=== PATIENT | female | born 1960 | race Hispanic/Latino ===

== ENCOUNTER → 2019-01-11 | Outpatient (CLI) | payer OTHER | END | disposition home or self-care (01) | LOC: SHCH 13:12 | PROVIDERS: ATTEND Internal Medicine Cardiovascular Disease | DX: I87.2 Venous insufficiency (chronic) (peripheral) (principal); I10 Essential (primary) hypertension | CPT/HCPCS: 93306; 93970 ==

== ENCOUNTER 2019-02-04 16:11 | Emergency (ER) | payer OTHER ==
[2019-02-04] MEDS ORDERED: ACETAMINOPHEN 325 MG TAB ONE (16:35)
[2019-02-04] MEDS ORDERED: SODIUM CHLORIDE 0.9% 1000ML 2,000 ML IV ONE (16:36)
[2019-02-04] MEDS ORDERED: SODIUM CHLORIDE 0.9% 100 ML IV ONE (17:07)
[2019-02-04 17:15] LABS: BASOPHILS % (AUTO) 0.5 % (0.0-5.0); EOSINOPHILS % (AUTO) 0.1 % (0.0-8.0); HEMATOCRIT 36.6 % (36-48); LYMPHOCYTES % (AUTO) 7.8 % (21.0-51.0); MEAN CORPUSCULAR HEMOGLOBIN 29.1 pg (27.0-33.0); MEAN CORPUSCULAR HGB CONC 33.2 g/dL (32.0-36.0); MEAN CORPUSCULAR VOLUME 87.6 fL (79-99); MONOCYTES % (AUTO) 9.7 % (3.0-13.0); NEUTROPHILS % (AUTO) 81.9 % (40.0-77.0); PLATELET COUNT (AUTO) 221 K/uL (130-400); RED BLOOD CELL COUNT(AUTO) 4.18 MIL/uL (4.00-5.50); RED CELL DISTRIBUTION WIDTH 15.1 % (11.0-15.5); WHITE BLOOD COUNT (AUTO) 7.6 K/uL (4.8-10.8)
[2019-02-04 17:23] LABS: APPEARANCE,URINE Clear (CLEAR); BILIRUBIN,URINE Small (NEGATIVE); COLOR,URINE Dark Yellow (YELLOW); GLUCOSE, URINE (UA) Negative (NEGATIVE); KETONES,URINE Negative (NEGATIVE); LEUKOCYTE ESTERASE ,URINE Trace (NEGATIVE); NITRATE,URINE Negative (NEGATIVE); OCCULT BLOOD,URINE Negative (NEGATIVE); PH,URINE 8.5 (5.0-8.0); PROTEIN,URINE POS 2+ mg/dL (NEGATIVE)
[2019-02-04 17:30] LABS: BACTERIA,URINE Few /HPF (None Seen); RBC,URINE 0-1 /HPF (0-1)
[2019-02-04 17:31] LABS: SQUAMOUS EPITHELIAL CELL,UR Few /HPF (0-2)
[2019-02-04 17:35] LABS: YEAST,URINE BUDDING Rare /HPF (None Seen)
[2019-02-04 18:01] LABS: INR 0.98 (0.85-1.15); PARTIAL THROMBOPLASTIN TIME 34.4 SEC (26.3-35.5); PROTHROMBIN TIME 10.3 SEC (9.6-11.6)
[2019-02-04] MEDS ORDERED: METHYLPREDNISOLONE SOD SUCC 125MG/2ML VIAL ONE (18:52)
[2019-02-04] MEDS ORDERED: KETOROLAC TROMETHAMINE 15MG/ML ONE (18:52)
[2019-02-04 18:57] LABS: ALBUMIN 2.4 g/dL (3.5-5.0); BILIRUBIN,TOTAL 0.5 mg/dL (0.2-1.0); CREATININE 0.9 mg/dL (0.5-1.5); TOTAL PROTEIN, SERUM 6.4 g/dL (6.0-8.3)
[2019-02-04 19:06] LABS: POTASSIUM 4.1 mmol/L (3.5-5.1)
== END 2019-02-04 19:26 | disposition home or self-care (01) ==
LOC: EDH 16:11
DX: J44.1 Chronic obstructive pulmonary disease with (acute) exacerbation (principal); J06.9 Acute upper respiratory infection, unspecified; R53.83 Other fatigue; R53.81 Other malaise; E11.9 Type 2 diabetes mellitus without complications; Z88.6 Allergy status to analgesic agent; Z88.8 Allergy status to other drugs, medicaments and biological substances; Z98.890 Other specified postprocedural states
CPT/HCPCS: 36415; 71045; 80053; 81001; 83605; 85025; 85610; 85730; 87040 ×2; 87088; 87804 ×2; 87880; 93005; 96374; 96375; 99285; J1885; J2930; J7030

== ENCOUNTER → 2019-07-24 | Outpatient (CLI) | payer OTHER | END | disposition home or self-care (01) | LOC: SHCH 14:27 | PROVIDERS: ATTEND Internal Medicine Cardiovascular Disease | DX: Z09 Encounter for follow-up examination after completed treatment for conditions other than malignant neoplasm (principal); I82.812 Embolism and thrombosis of superficial veins of left lower extremity | CPT/HCPCS: 93971 ==

== ENCOUNTER 2019-08-23 09:22 | Emergency (ER) | payer OTHER ==
[2019-08-23 10:43] LABS: BASOPHILS % (AUTO) 0.8 % (0.0-5.0); EOSINOPHILS % (AUTO) 3.6 % (0.0-8.0); HEMATOCRIT 38.1 % (36-48); LYMPHOCYTES % (AUTO) 18.4 % (21.0-51.0); MEAN CORPUSCULAR HEMOGLOBIN 27.2 pg (27.0-33.0); MEAN CORPUSCULAR VOLUME 84.9 fL (79-99); MONOCYTES % (AUTO) 7.9 % (3.0-13.0); NEUTROPHILS % (AUTO) 68.4 % (40.0-77.0); PLATELET COUNT (AUTO) 285 K/uL (130-400); RED BLOOD CELL COUNT(AUTO) 4.49 MIL/uL (4.00-5.50); RED CELL DISTRIBUTION WIDTH 13.7 % (11.0-15.5); WHITE BLOOD COUNT (AUTO) 7.8 K/uL (4.8-10.8)
[2019-08-23 10:53] LABS: CREATININE 0.8 mg/dL (0.5-1.5); POTASSIUM 4.9 mmol/L (3.5-5.1)
[2019-08-23 12:08] LABS: APPEARANCE,URINE Clear (CLEAR); BILIRUBIN,URINE Negative (NEGATIVE); COLOR,URINE Yellow (YELLOW); GLUCOSE, URINE (UA) Negative (NEGATIVE); KETONES,URINE Negative (NEGATIVE); LEUKOCYTE ESTERASE ,URINE Negative (NEGATIVE); NITRATE,URINE Negative (NEGATIVE); OCCULT BLOOD,URINE Negative (NEGATIVE); PH,URINE 7.5 (5.0-8.0); PROTEIN,URINE Negative (NEGATIVE); UROBILINOGEN,URINE 0.2 mg/dL (0.2-1.0)
== END 2019-08-23 11:55 | disposition home or self-care (01) ==
LOC: EDH 09:22
DX: M79.605 Pain in left leg (principal); M79.89 Other specified soft tissue disorders; J44.9 Chronic obstructive pulmonary disease, unspecified; Z87.891 Personal history of nicotine dependence; Z88.8 Allergy status to other drugs, medicaments and biological substances
CPT/HCPCS: 36415; 80048; 81003; 85025; 93971

== ENCOUNTER 2022-03-30 18:07 | Observation (INO) | payer OTHER ==
[~2022-03-30] VITALS: Ht 162.6 cm; Wt 71.3 kg
[2022-03-30] MEDS ORDERED: 0.9%NACL 1000ML 1,000 ML IV ONE (18:30)
[2022-03-30] MEDS ORDERED: NALOXONE HCL 0.4 MG/1 ML ML IVP ONE (18:30)
[2022-03-30 18:41] LABS: BASOPHILS % (AUTO) 0.2 % (0.0-5.0); EOSINOPHILS % (AUTO) 5.7 % (0.0-8.0); HEMATOCRIT 41.3 % (36-48); LYMPHOCYTES % (AUTO) 6.1 % (21.0-51.0); MEAN CORPUSCULAR HEMOGLOBIN 27.4 pg (27.0-33.0); MEAN CORPUSCULAR VOLUME 85.9 fL (79-99); MONOCYTES % (AUTO) 8.5 % (3.0-13.0); NEUTROPHILS % (AUTO) 78.6 % (40.0-77.0); PLATELET COUNT (AUTO) 306 K/uL (130-400); RED BLOOD CELL COUNT(AUTO) 4.81 MIL/uL (4.00-5.50); RED CELL DISTRIBUTION WIDTH 14.2 % (11.0-15.5); WHITE BLOOD COUNT (AUTO) 20.7 K/uL (4.8-10.8)
[2022-03-30 18:51] LABS: CARBON DIOXIDE 26 mmol/L (21-32); CHLORIDE 93 mmol/L (101-111); CREATININE 1.6 mg/dL (0.5-1.5); GLOMERULAR FILTR. RATE CALC 35 mL/min (>60); GLUCOSE,RANDOM 249 mg/dL (70-105); POTASSIUM 4.4 mmol/L (3.5-5.1); SODIUM SERUM 130 mmol/L (136-145); UREA NITROGEN, BLOOD 18 mg/dL (7-18)
[2022-03-30 18:55] LABS: ALANINE AMINOTRANSFERASE 282 U/L (12-78); ALBUMIN 3.6 g/dL (3.5-5.0); ALCOHOL, BLOOD < 3 mg/dL (0-10); AMMONIA 19 umol/L (11-32); ASPARTATE AMINOTRANSFERASE 491 U/L (10-37); CREATINE KINASE, TOTAL 145 U/L (21-232); TOTAL PROTEIN, SERUM 7.7 g/dL (6.0-8.3)
[2022-03-30 19:03] LABS: ACETAMINOPHEN < 1 mcg/mL (10-30); SALICYLATE < 2.8 mg/dL (2.8-20.0)
[2022-03-30] MEDS ORDERED: DDAV2 PO (21:27)
[2022-03-30] MEDS ORDERED: FOLI0.8T3 PO (21:27)
[2022-03-30] MEDS ORDERED: DAPA5TAB PO (21:27)
[2022-03-30] MEDS ORDERED: PRAV10TA39 PO (21:27)
[2022-03-30] MEDS ORDERED: OXYB5TAB15 PO (21:27)
[2022-03-30] MEDS ORDERED: TRAM50TA4 PO (21:27)
[2022-03-30] MEDS ORDERED: MAGN500C4 PO (21:27)
[2022-03-30] MEDS ORDERED: FAMO40TA7 PO (21:27)
[2022-03-30] MEDS ORDERED: GABA300C PO (21:27)
[2022-03-30] MEDS ORDERED: AMLO-257 PO (21:27)
[2022-03-30] MEDS ORDERED: ACETAMINOPHEN 650 MG SUPPOSITORY RC PRN (21:30)
[2022-03-30] MEDS ORDERED: ACETAMINOPHEN 325 MG TAB PO PRN (21:30)
[2022-03-30] MEDS: 0.9%NACL 1000ML 1,000 ML IV SCH (22:23)
[2022-03-31 00:51] LABS: APPEARANCE,URINE CLEAR (CLEAR); BILIRUBIN,URINE NEGATIVE (NEGATIVE); COLOR,URINE YELLOW (YELLOW); GLUCOSE, URINE (UA) >=1000 mg/dL (NEGATIVE); KETONES,URINE NEGATIVE (NEGATIVE); LEUKOCYTE ESTERASE ,URINE NEGATIVE (NEGATIVE); NITRATE,URINE NEGATIVE (NEGATIVE); OCCULT BLOOD,URINE NEGATIVE (NEGATIVE); PH,URINE 6.5 (5.0-8.0); PROTEIN,URINE NEGATIVE (NEGATIVE)
[2022-03-31 00:58] LABS: AMPHET/METH SCREEN,URINE NEGATIVE (NEGATIVE); BARBITURATE SCREEN, URINE NEGATIVE (NEGATIVE); BENZODIAZEPINES SCREEN,URINE NEGATIVE (NEGATIVE); CANNABINOID SCREEN,URINE NEGATIVE (NEGATIVE); COCAINE SCREEN,URINE NEGATIVE (NEGATIVE); OPIATE SCREEN,URINE POSITIVE (NEGATIVE); PHENCYCLIDINE SCREEN,URINE NEGATIVE (NEGATIVE)
[2022-03-31 01:15] LABS: BACTERIA,URINE Many /HPF (None Seen); RBC,URINE 0-1 /HPF (0-1); SQUAMOUS EPITHELIAL CELL,UR 0-2 /HPF (0-2); WBC,URINE 0-1 /HPF (0-1)
[2022-03-31] MEDS: IPRATROPIUM 0.5 MG/2.5 ML INH IH SCH ×5 (01:21→23:25)
[2022-03-31] MEDS ORDERED: NALOXONE HCL 0.4 MG/1 ML ML IVP SCH (04:30)
[2022-03-31] MEDS: AZITHROMYCIN 500MG+NS 250ML IVPB SCH (05:45)
[2022-03-31] MEDS: CEFTRIAXONE 2GM VIAL IVP SCH (05:45)
[2022-03-31 05:51] LABS: HEMATOCRIT 36.7 % (36-48); MEAN CORPUSCULAR HEMOGLOBIN 27.4 pg (27.0-33.0); MEAN CORPUSCULAR HGB CONC 32.2 g/dL (32.0-36.0); MEAN CORPUSCULAR VOLUME 85.2 fL (79-99); RED BLOOD CELL COUNT(AUTO) 4.31 MIL/uL (4.00-5.50); RED CELL DISTRIBUTION WIDTH 14.3 % (11.0-15.5); WHITE BLOOD COUNT (AUTO) 14.5 K/uL (4.8-10.8)
[2022-03-31] MEDS: INSULIN HUMULIN R 100 UNIT/ML 3ML SQ SCH ×5 (06:00→20:57)
[2022-03-31 06:15] LABS: CREATININE 1.1 mg/dL (0.5-1.5); MAGNESIUM 1.7 mg/dL (1.80-2.40); PHOSPHORUS 3.1 mg/dL (2.5-4.9); POTASSIUM 4.2 mmol/L (3.5-5.1)
[2022-03-31] MEDS: 0.9%NACL 1000ML 1,000 ML IV SCH ×3 (08:59→23:19)
[2022-03-31] MEDS ORDERED: CEFTRIAXONE 1G VIAL IVP SCH (09:00)
[2022-03-31] MEDS ORDERED: AZITHROMYCIN 500MG+NS 250ML IV SCH (09:00)
[2022-03-31] MEDS: ENOXAPARIN SODIUM 30 MG/0.3 ML SQ SCH (09:21)
[2022-03-31 10:50] VITALS: BP 149/76
[2022-03-31] MEDS: MAGNESIUM 2GM PREMIX 50ML 50 ML IV PRN (15:09)
[2022-03-31 15:32] VITALS: BP 138/73
[2022-03-31] MEDS ORDERED: TRAMADOL HCL 50 MG TABLET PO PRN (17:30)
[2022-03-31 19:06] VITALS: BP 147/71
[2022-03-31] MEDS: GABAPENTIN 300 MG CAPSULE PO SCH (20:56)
[2022-03-31] MEDS: FAMOTIDINE 20MG TAB PO SCH (20:56)
[2022-03-31] MEDS ORDERED: NON-FORMULARY MEDICATION 1 EACH (Famotidine 40 MG) PO SCH (21:00)
[2022-03-31] MEDS: DESMOPRESSIN ACETATE 0.2 MG PO SCH (21:00)
[2022-03-31] MEDS ORDERED: BENZONATATE 100 MG CAPSULE PO PRN (23:00)
[2022-03-31] MEDS ORDERED: DIPHENHYDRAMINE HCL 25 MG CAPSULE PO PRN (23:00)
[2022-04-01 00:07] VITALS: BP 137/71
[2022-04-01 03:06] VITALS: BP 140/76
[2022-04-01 04:23] LABS: BASOPHILS % (AUTO) 0.3 % (0.0-5.0); EOSINOPHILS % (AUTO) 0.4 % (0.0-8.0); HEMATOCRIT 34.4 % (36-48); LYMPHOCYTES % (AUTO) 9.7 % (21.0-51.0); MEAN CORPUSCULAR HEMOGLOBIN 27.3 pg (27.0-33.0); MEAN CORPUSCULAR VOLUME 85.4 fL (79-99); MONOCYTES % (AUTO) 6.3 % (3.0-13.0); NEUTROPHILS % (AUTO) 82.8 % (40.0-77.0); PLATELET COUNT (AUTO) 226 K/uL (130-400); RED BLOOD CELL COUNT(AUTO) 4.03 MIL/uL (4.00-5.50); RED CELL DISTRIBUTION WIDTH 14.4 % (11.0-15.5); WHITE BLOOD COUNT (AUTO) 11.7 K/uL (4.8-10.8)
[2022-04-01 04:26] LABS: HEMOGLOBIN A1C 6.5 % (4.0-6.0)
[2022-04-01 04:36] LABS: ALBUMIN 2.5 g/dL (3.5-5.0); CREATININE 0.8 mg/dL (0.5-1.5); MAGNESIUM 1.9 mg/dL (1.80-2.40); POTASSIUM 3.6 mmol/L (3.5-5.1); TOTAL PROTEIN, SERUM 6.4 g/dL (6.0-8.3)
[2022-04-01] MEDS: AZITHROMYCIN 500MG+NS 250ML IVPB SCH (04:41)
[2022-04-01] MEDS: CEFTRIAXONE 2GM VIAL IVP SCH (04:41)
[2022-04-01] MEDS: MAGNESIUM 2GM PREMIX 50ML 50 ML IV PRN (05:46)
[2022-04-01] MEDS: INSULIN HUMULIN R 100 UNIT/ML 3ML SQ SCH ×2 (06:03→11:08)
[2022-04-01] MEDS: IPRATROPIUM 0.5 MG/2.5 ML INH IH SCH ×2 (06:29→11:32)
[2022-04-01 08:00] VITALS: BP 143/72
[2022-04-01] MEDS: FAMOTIDINE 20MG TAB PO SCH (08:32)
[2022-04-01] MEDS: GABAPENTIN 300 MG CAPSULE PO SCH ×2 (08:32→13:18)
[2022-04-01] MEDS: ENOXAPARIN SODIUM 30 MG/0.3 ML SQ SCH (08:32)
[2022-04-01] MEDS: DESMOPRESSIN ACETATE 0.2 MG PO SCH (08:33)
[2022-04-01] MEDS: 0.9%NACL 1000ML 1,000 ML IV SCH (08:38)
[2022-04-01] MEDS ORDERED: FOLIC ACID 1 MG TABLET PO SCH (09:00)
[2022-04-01] MEDS ORDERED: NON-FORMULARY MEDICATION 1 EACH (Folic Acid 0.8 MG) PO SCH (09:00)
[2022-04-01] MEDS ORDERED: Dapagliflozin Propanediol (Farxiga) 5 MG PO SCH (09:00)
[2022-04-01] MEDS ORDERED: AMLODIPINE 5 MG TAB PO SCH (09:00)
[2022-04-01 11:04] VITALS: BP 135/67
[2022-04-01] MEDS ORDERED: LEVO500T90 PO (12:23)
[2022-04-01] MEDS ORDERED: Pravastatin Sodium 10 MG PO SCH (21:00)
== END 2022-04-01 13:25 | disposition home or self-care (01) ==
LOC: EDH 18:07 → EDHIP 21:13 → 2DH 03-31 10:27
PROVIDERS: ADMIT Internal Medicine Critical Care Medicine; ATTEND Internal Medicine Critical Care Medicine
DX: G92.8 Other toxic encephalopathy (principal); T40.2X1A Poisoning by other opioids, accidental (unintentional), initial encounter; J18.9 Pneumonia, unspecified organism; D72.829 Elevated white blood cell count, unspecified; N39.0 Urinary tract infection, site not specified; E87.1 Hypo-osmolality and hyponatremia; E87.8 Other disorders of electrolyte and fluid balance, not elsewhere classified; N17.9 Acute kidney failure, unspecified; I13.0 Hypertensive heart and chronic kidney disease with heart failure and stage 1 through stage 4 chronic kidney disease, or unspecified chronic kidney disease; I50.33 Acute on chronic diastolic (congestive) heart failure; N18.9 Chronic kidney disease, unspecified; R74.01 Elevation of levels of liver transaminase levels; E11.65 Type 2 diabetes mellitus with hyperglycemia; Z79.899 Other long term (current) drug therapy
CPT/HCPCS: 96361 ×3; 96375 ×2; 99285; 82550; 80053 ×2; 82140; 85025 ×2; 36415 ×3; 71045 ×2; 70450; 93005; 94640 ×6; 96376 ×2; 96372 ×2; 96365; 96366 ×2; 96367; 83735 ×2; 84100; 80048; 80305; 85027; 85378 ×2; 87077; 87088; 87186; 82948 ×7; 83605; 81001; 94664; 84145; 83036; 80061; G0378 ×40; G0481; J2310 ×2; J7030 ×5; Q0163; J3475 ×2; J0696 ×2; J1650 ×2; J0456 ×2

== ENCOUNTER 2023-07-08 17:17 | Emergency (ER) | payer OTHER ==
[~2023-07-08] VITALS: Ht 162.6 cm; Wt 79.4 kg
[~2023-07-08 17:17] MED LIST: AMLO-257 PO; DAPA5TAB PO; FAMO40TA7 PO; FOLI0.8T3 PO; GABA300C PO; LEVO-70 PO; MAGN500C4 PO; OXYB5TAB20 PO; PRAV10TA39 PO; TRAM50TA4 PO; [UNRECOGNIZED DRUG - CODE] PO
[2023-07-08 18:32] LABS: BASOPHILS # (AUTO) 0.08 K/uL (0.00-0.20); BASOPHILS % (AUTO) 1.1 % (0.0-5.0); EOSINOPHILS # (AUTO) 0.22 K/uL (0.00-0.70); IMMATURE GRANULOCYTE ABSOLUTE 0.02 K/uL (0-1); LYMPHOCYTES # (AUTO) 1.8 K/uL (1.0-4.8); LYMPHOCYTES % (AUTO) 24.6 % (21.0-51.0); MEAN CORPUSCULAR HEMOGLOBIN 27.2 pg (27.0-33.0); MEAN CORPUSCULAR HGB CONC 31.9 g/dL (32.0-36.0); MEAN CORPUSCULAR VOLUME 85.2 fL (79-99); MONOCYTES # (AUTO) 0.6 K/uL (0.1-1.0); MONOCYTES % (AUTO) 7.4 % (3.0-13.0); NEUTROPHILS # (AUTO) 4.7 K/uL (1.8-7.7); NEUTROPHILS % (AUTO) 63.6 % (40.0-77.0); PLATELET COUNT (AUTO) 246 K/uL (130-400); RED BLOOD CELL COUNT(AUTO) 4.93 MIL/uL (4.00-5.50); RED CELL DISTRIBUTION WIDTH 14.6 % (11.0-15.5); WHITE BLOOD COUNT (AUTO) 7.4 K/uL (4.8-10.8)
[2023-07-08 18:55] LABS: B-TYPE NATRIURETIC PEPTIDE 43 pg/mL (0-100)
[2023-07-08 19:41] LABS: APPEARANCE,URINE CLEAR (CLEAR); BILIRUBIN,URINE NEGATIVE (NEGATIVE); COLOR,URINE YELLOW (YELLOW); GLUCOSE, URINE (UA) NEGATIVE (NEGATIVE); KETONES,URINE NEGATIVE (NEGATIVE); LEUKOCYTE ESTERASE ,URINE NEGATIVE Leu/uL (NEGATIVE); NITRATE,URINE NEGATIVE (NEGATIVE); OCCULT BLOOD,URINE NEGATIVE (NEGATIVE); PH,URINE 6.5 (5.0-8.0); PROTEIN,URINE NEGATIVE (NEGATIVE); UROBILINOGEN,URINE 0.2 mg/dL (0.2-1.0)
[2023-07-08 19:45] LABS: ADD UA MICROSCOPIC YES
[2023-07-08 19:46] LABS: MUCUS,URINE RARE LPF (None Seen); WBC,URINE 0-1 /HPF (0-1)
[2023-07-08 21:46] LABS: INR < 0.93 (0.85-1.15); PROTHROMBIN TIME 10.4 SEC (9.6-11.6)
[2023-07-08 21:47] LABS: PARTIAL THROMBOPLASTIN TIME 28.8 SEC (26.3-35.5)
[2023-07-09 00:05] VITALS: BP 122/84; PULSE 69; RESP 48; O2SAT 99
[2023-07-09 00:26] LABS: CREATININE 0.8 mg/dL (0.5-1.5); POTASSIUM 3.6 mmol/L (3.5-5.1)
[2023-07-09 00:31] LABS: ALBUMIN 3.7 g/dL (3.5-5.0); BILIRUBIN,TOTAL 0.3 mg/dL (0.2-1.0); TOTAL PROTEIN, SERUM 7.1 g/dL (6.0-8.3)
[2023-07-09] MEDS ORDERED: ASPI-1005 PO (00:41)
[2023-07-09] MEDS ORDERED: OMEP20TA2 PO (00:41)
== END 2023-07-09 00:56 | disposition home or self-care (01) ==
LOC: EDH 17:17
DX: R07.89 Other chest pain (principal); J44.9 Chronic obstructive pulmonary disease, unspecified; E11.9 Type 2 diabetes mellitus without complications; E78.00 Pure hypercholesterolemia, unspecified; I10 Essential (primary) hypertension; Z79.84 Long term (current) use of oral hypoglycemic drugs; Z79.899 Other long term (current) drug therapy; Z87.891 Personal history of nicotine dependence; Z88.5 Allergy status to narcotic agent; Z88.8 Allergy status to other drugs, medicaments and biological substances; Z90.49 Acquired absence of other specified parts of digestive tract
CPT/HCPCS: 36415; 71045; 80053; 81001; 83880; 84484; 85025; 85610; 85730; 93005

== ENCOUNTER → 2023-09-20 | Outpatient (CLI) | payer OTHER ==
[~2023-09-20] MED LIST changes: +ASPI-1005 PO; +OMEP20TA2 PO; +REGADENOSON 0.4 MG/5 ML PF SYG IVP ONE
== END | disposition home or self-care (01) ==
LOC: SHCH 08:50
PROVIDERS: ATTEND Internal Medicine Cardiovascular Disease
DX: I20.9 Angina pectoris, unspecified (principal); R07.9 Chest pain, unspecified; R06.09 Other forms of dyspnea
CPT/HCPCS: 78452; 96374; 93017; J2785; A9500 ×2

== ENCOUNTER → 2023-10-07 | Outpatient (CLI) | payer OTHER ==
[~2023-10-07] MED LIST changes: -REGADENOSON 0.4 MG/5 ML PF SYG IVP ONE
== END | disposition home or self-care (01) ==
LOC: SHCH 13:57
PROVIDERS: ATTEND Internal Medicine Cardiovascular Disease
DX: I11.9 Hypertensive heart disease without heart failure (principal); I20.9 Angina pectoris, unspecified; R07.9 Chest pain, unspecified; R06.09 Other forms of dyspnea; E78.5 Hyperlipidemia, unspecified
CPT/HCPCS: 93306

== ENCOUNTER → 2023-10-13 | Outpatient (CLI) | payer OTHER | END | disposition home or self-care (01) | LOC: SHCH 14:50 | PROVIDERS: ATTEND Internal Medicine Cardiovascular Disease | DX: I87.2 Venous insufficiency (chronic) (peripheral) (principal); I87.1 Compression of vein; I73.9 Peripheral vascular disease, unspecified | CPT/HCPCS: 93925; 93970 ==

== ENCOUNTER → 2024-01-24 | Outpatient (CLI) | payer OTHER | END | disposition home or self-care (01) | LOC: RAH 11:04 | PROVIDERS: ATTEND Internal Medicine | DX: I73.9 Peripheral vascular disease, unspecified (principal) | CPT/HCPCS: 93926 ==